=== PATIENT | female | born 1995 | race Caucasian/White ===

== ENCOUNTER 2022-06-01 00:58 | Emergency (ER) | payer MEDICAID, OTHER ==
[~2022-06-01] VITALS: Ht 154.9 cm; Wt 50.0 kg
[~2022-06-01 00:58] MED LIST: RISP1TAB48 PO
[2022-06-01 01:35] VITALS: BP 133/82
[2022-06-01] MEDS ORDERED: ACETAMINOPHEN 500 MG TABLET PO ONE (02:45)
[2022-06-01] MEDS ORDERED: DiphenhydrAMINE HCL 50 MG/ML VIAL IM ONE (02:45)
[2022-06-01] MEDS ORDERED: LIDOCAINE 2% VISCOUS 15 ML SOLUTION UDCUP PO ONE (02:45)
[2022-06-01] MEDS ORDERED: CEPHALEXIN MONOHYDRATE 500 MG CAPSULE PO ONE (02:45)
[2022-06-01] MEDS ORDERED: DOXY-354 PO (04:41)
[2022-06-01] MEDS ORDERED: CEPH-558 PO (04:41)
[2022-06-01] MEDS ORDERED: DIPH50CA37 PO (04:41)
[2022-06-03] MEDS ORDERED: BACTDSB PO (08:49)
== END 2022-06-01 04:49 | disposition home or self-care (01) ==
LOC: EMS 01:00
DX: T78.40XA Allergy, unspecified, initial encounter (principal); L02.02 Furuncle of face; F20.9 Schizophrenia, unspecified; F15.90 Other stimulant use, unspecified, uncomplicated; Z59.00 Homelessness unspecified; X58.XXXA Exposure to other specified factors, initial encounter
CPT/HCPCS: 99283; 96372; J1200